=== PATIENT | female | born 1970 | race Caucasian/White ===

== ENCOUNTER → 2019-03-10 | Outpatient (CLI) | payer BC ==
--- NOTE | 2019-03-10 10:29 | CT ---
EXAMINATION TYPE: CT angio chest DATE OF EXAM: 03/10/2019 COMPARISON: NONE HISTORY: Elevated d-dimer rule out pulmonary embolism CT DLP: 127.7 mGycm. Automated Exposure Control for Dose Reduction was Utilized. CONTRAST: CTA scan of the thorax is performed with IV Contrast, patient injected with 100 mL of Isovue 370, pul monary embolism protocol. MIP Images are created on CT scanner and reviewed. FINDINGS: LUNGS: The lungs are grossly clear, there is no concerning parenchymal mass or nodule identified. T here is no pleural effusion or pneumothorax seen. The tracheobronchial tree is patent. MEDIASTINUM: There is suboptimal bolus with near equal contrast the right and left heart systems but no convincing CT evidence for significant pulmonary embolism. There are no greater than 1 cm hilar o r mediastinal lymph nodes. Tiny pericardial effusion is seen. No cardiomegaly. OTHER: No additional significant abnormality is seen. Subglandular bilateral breast implants are ferny ntified IMPRESSION: Suboptimal study without CT evidence for acute pulmonary embolism. No suspicious acute pu lmonary process.
== END | disposition home or self-care (01) ==
LOC: RADCTMAIN 09:45
PROVIDERS: ATTEND Family Medicine
DX: R79.1 Abnormal coagulation profile (principal)
CPT/HCPCS: 71275; Q9967

== ENCOUNTER → 2020-02-09 | Outpatient (CLI) | payer BC ==
--- NOTE | 2020-02-10 07:03 | US ---
EXAMINATION TYPE: US transvaginal DATE OF EXAM: 02/09/2020 COMPARISON: NONE CLINICAL HISTORY: N92.1 MENORRHAGIA WITH IRREG CYCLE. DUB, TECHNIQUE: TV. Transvaginal sonographic images Date of LMP: 01/27/20 EXAM MEASUREMENTS: Uterus: 10.1 x 4.8 x 4.6 cm Endometrial Stripe: 1.0 cm Right Ovary: 3.0 x 2.2 x 2.4 cm Left Ovary: 1.6 x 1.6 x 1.5 cm 1. Uterus: Anteverted wnl 2. Endometrium: wnl 3. Right Ovary: cyst seen = 2.4 x 1.8 x 2.1cm 4. Left Ovary: wnl 5. Bilateral Adnexa: wnl 6. Posterior cul-de-sac: wnl IMPRESSION: Right ovarian cyst is likely functional in nature. This can be confirmed with follow-up study in 6 we eks.
== END | disposition home or self-care (01) ==
LOC: RADUSWWP 16:19
PROVIDERS: ATTEND Obstetrics & Gynecology
DX: N83.201 Unspecified ovarian cyst, right side (principal)
CPT/HCPCS: 76830

== ENCOUNTER → 2024-10-18 | Outpatient (CLI) | payer BC ==
[2024-10-18 16:42] VITALS: BP 113/65; PULSE 62; RESP 16; TEMP 98.1
--- NOTE | 2024-10-18 20:04 | P.SLEEP ---
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 The patient was seen and evaluated at [facility] out of [facility]. At that time, the patient was suffering of excessive fatigue and daytime sleepiness. Her symptoms were almost on a daily basis. Her Stillwater score was 11. Her general wake inability and fatigue score was measured to be at 13. The patient reports that she went to bed at around 9 PM and it took her approximately 5 minutes to fall asleep and there was no reported sleep fragmentation and she woke up 5 AM in the morning and her total procedure time to sleep was around 8 hours. She also reported snoring, and she reported to her sleep was nonrestorative and the patient felt not refreshed during the day. The patient has other comorbidities including depression. The patient was given to home sleep studies and those were performed on 08/13/2023 and 08/26/2023. I reviewed those studies. The patient showed no evidence of any nocturnal oxygen desaturations and there was no evidence of any significant sleep breathing disorder. Based on those negative sleep studies, the patient was given a po lysomnography that she dated on 09/29/2023. Reviewed the results of the polysomnography and the patient demonstrated an overall sleep efficiency of 93.6%. The sleep architecture was characterized by 9% stage I, 74.2% stage II, 1.3% stage III and an 18.4% REM sleep. The respiratory analysis showed a total of 7 obstructive apneas and 1 central apnea and 1 obstructive hypopnea based on a 4% desaturation criteria and 25 obstructive hypopneas based on the 3% desaturation criteria. As such, her AHI was 1.6 based on the CMS 4% desaturation and the AHI was 5.9 based on the AASM 3% desaturation criteria. The disease is positional the majority of the obstructive respiratory events occurred in a supine body position. CPAP machine and the patient was Based on those results, the patient was given a treated with an APAP unit, pressures of 5/15 cm of water. The patient was quite compliant to her treatment. Based on a 90-day compliance data collected on her machine, the patient was averaging around 5 hours and 10 minutes of APAP use per night and her AHI was down to 0.9. Her compliancy for more than 4 hours usage was in the order of 67%. The leak was 11 L/min and the AHI while on treatment was calculated to be at 0.9. Despite this treatment, the patient had no significant clinical response. The patient continued to have the same function and there was reportedly no clinical response while being on or off therapy. To my understanding, the patient also had a MSLT following the PSG. Results of the MSLT is not available to me at this point. Nevertheless, the patient was told that she did not meet criteria for narcolepsy. The patient furthermore has no sleep paralysis, no hallucinations, no cataplexy, she feels chronically fatigued, she is currently on Adderall 10 mg which helps her with attention span and sleepiness. Symptoms are partially treated with Adderall 5 mg p.o. twice daily. The patient denies having choking or gasping for air while sleeping. No sleepwalking. No sleep talking. No nocturnal chest pain or heartburn. No palpitations. She is going to bed at around 9:30 PM and waking up 5 AM in the morning and she is maintaining the same sleep schedule. She is sleeping on her side. No significant weight gain over the years. She drinks around 4 cups of coffee in the morning. No history of any motor vehicle accidents because of feeling drowsy or sleepy. Review of Systems Constitutional: Reports daytime sleepiness, Reports fatigue Eyes: denies as per HPI, denies blurred vision, denies bulging eye, denies decreased vision, denies diplopia, denies discharge, denies dry eye, denies irritation, denies itching, denies pain, denies photophobia, denies loss of peripheral vision, denies loss of vision, denies tunnel vision/blind spots Ears: deny: decreased hearing, ear discharge, earache, tinnitus Ears, nose, mouth and throat: Reports as per HPI Breasts: absent: as per HPI, change in shape, gynecomastia, masses, nipple discharge, pain, skin changes, swelling Cardiovascular: Reports as per HPI Respiratory: Reports as per HPI Gastrointestinal: Reports as per HPI Genitourinary: Reports as per HPI Menstruation: Reports as per HPI Musculoskeletal: Reports as per HPI Musculoskeletal: absent: ankle pain, ankle stiffness, ankle swelling, as per HPI, elbow pain, elbow stiffness, elbow swelling, foot pain, foot stiffness, foot swelling, hand pain, hand stiffness, hand swelling, hip pain, hip stiffness, hip swelling, knee pain, knee stiffness, knee swelling, shoulder pain, shoulder stiffness, shoulder swelling, wrist pain, wrist stiffness, wrist swelling Integumentary: Reports as per HPI Neurological: Reports as per HPI Psychiatric: Reports as per HPI, Reports anxiety, Reports depression, Reports hypersomnia Endocrine: Reports as per HPI Hematologic/Lymphatic: Reports as per HPI Allergic/Immunologic: Reports as per HPI Past Medical History Additional Past Medical History / Comment(s): DEPRESSION, ADD, DRY EYES, ANEMIA History of Any Multi-Drug Resistant Organisms: None Reported Additional Past Surgical History / Comment(s): BREAST AUGMENTATION Past Psychological History: ADD/ADHD, Anxiety, Depression Smoking Status: Never smoker Past Alcohol Use History: Occasional Past Drug Use History: None Reported - Past Family History Father Family Medical History: Diabetes Mellitus, Hypertension Additional Family Medical History / Comment(s): ARTHRITIS, CANCER (BLADDER, PROSTATE, KIDNEY, LUNG) BROTHER AND DAD - NASAL POLYPS Mother Family Medical History: Hypertension Additional Family Medical History / Comment(s): sIBLINGS HX: SLEEP APNEA, SN ORING, BROTHER - PACEMAKER, BROTHER - DIABETES, SISTER THYROID, AUNT W/ NARCOLEPSY Medications and Allergies Home Medications Medication Instructions Recorded Confirmed Type Dextroamphetamine/Amphetamine 10 mg PO BID 10/18/24 10/18/24 History [Adderall Xr 10 mg Capsule] FLUoxetine HCL [PROzac] 40 mg PO DAILY 10/18/24 10/18/24 History Progesterone, Micronized 200 mg PO HS 10/18/24 10/18/24 History [Progesterone] Physical Exam Vitals: Vital Signs Temp Pulse Resp BP Pulse Ox 10/18/24 16:40 98.1 F 62 16 113/65 97 Intake and Output 10/18/24 10/18/24 10/18/24 06:59 14:59 22:59 Other: Weight 64.58 kg The patient appeared well nourished and normally developed. Vital signs as documented. Head exam is unremarkable. No scleral icterus or corneal arcus noted. Neck is without jugular venous distension, thyromegaly, or carotid bruits. Carotid upstrokes are brisk bilaterally. Lungs are clear to auscultation and percussion. Cardiac exam reveals the PMI to be normally sized and situated. Rhythm is regular. First and second heart sounds normal. No murmurs, rubs or gallops. Abdominal exam reveals normal bowel sounds, no masses, no organomegaly and no aortic enlargement. Extremities are nonedematous and both femoral and pedal pulses are normal. Examination of the skin revealed no evidence of significant rashes, suspicious appearing nevi or other concerning lesions. Neurologically, the patient is awake and alert and the patient does not have any focal neurological deficit. Cranial nerves are essentially intact. Assessment and Plan Plan: Chronic fatigue/hypersomnia, Stillwater score of 12. Patient evaluated through [facility] attention [facility] and the patient was given diagnosis of sleep apnea based on a polysomnography that was done on 09/29/2023. Patient was placed on CPAP therapy without any major clinical improvement. Symptoms are essentially unchanged. Patient is currently on Adderall 10 mg p.o. twice a day. Chronic depression, maintained on Prozac Chronic fatigue Plan I evaluated the patient. I also reviewed the 2 home sleep studies done on the patient back in 2013. I also reviewed the polysomnography and compliancy data from the patient's CPAP unit and data collected from her machine over the past 3 months. I am not convinced that the patient has a clinically significant obstructive sleep apnea. The patient has no major sleep fragmentation. Her sleep architecture is adequate. She has good sleep efficiency. As for the obstructive respiratory events, those were minimal essentially positional in the form of obstructive hypopneas and apneas and not associated with any significant nocturnal oxygen desaturations. The diagnosis of obstructive sleep apnea was made on the basis of a 3% oxygen saturation, AASM criteria and the patient was given an AHI of 5.9. Symptoms remain essentially oxygen despite adequate and successful CPAP therapy. As such, I highly doubt that her symptoms are related to any form of underlying sleep breathing disorder. Would like to obtain copies of the MSLT to see if the patient has any pathologic hypersomnia. Of interest will be the measurement of her mean sleep latency calculated on the MSLT. No clinical symptoms to suggest narcolepsy and the patient is currently receiving partial therapy with Adderall 10 mg p.o. twice daily Suggest continuing stimulation therapy with Adderall. We reviewed MSLT. It is highly likely that the patient has a comorbid hypersomnia and/or idiopathic hypersomnia and she will require further stimulation therapy along with Adderall. We can potentially increase the dose of Adderall. We can also add an additional stimulant and I am going to do this after reviewing further records including the MSLT that was done at the other sleep center. Maintain good sleep hygiene measures Sleep hours to an average of 8 to 9 hours on a daily basis if possible. Treat comorbidities and the patient is currently on Prozac regarding her depression We can safely discontinue CPAP therapy for now as the patient has no significant sleep breathing disorder. She would benefit from sleeping on her sides at the patient's respiratory events there were measured were essentially positional, occurring mainly in a supine body position. This was discussed with the patient the patient was agreeable. The patient was seen back in follow-up in the office. Sleep Note - Sleep Data ESS Total: 12 - Sleep Note Sleep Note: Temperature: 98.1 F Pulse Rate: 62 Respiratory Rate: 16 Blood Pressure: 113/65 SpO2: 97 Height: 5 ft 4.7 in Weight: 64.58 kg BMI: Neck Circumference: 13
== END ==
LOC: 3 N SLEEP 15:31
PROVIDERS: ATTEND Internal Medicine Critical Care Medicine
DX: G47.33 Obstructive sleep apnea (adult) (pediatric) (principal); G47.10 Hypersomnia, unspecified; F32.A Depression, unspecified; R53.82 Chronic fatigue, unspecified
CPT/HCPCS: 99211